=== PATIENT | male | born 1975 | race Caucasian/White ===

== ENCOUNTER 2017-05-11 22:37 | Emergency (ER) | payer MEDICAID ==
[~2017-05-11] VITALS: Ht 182.8 cm; Wt 121.6 kg
[~2017-05-11 22:37] MED LIST: DOXEPIN PO; [UNRECOGNIZED DRUG - OTHER] PO
[2017-05-11] MEDS ORDERED: KETOROLAC10 MG PO (23:47)
[2017-05-11] MEDS ORDERED: CYCLOBENZAPRINE5 M3 PO (23:47)
[2017-05-11] MEDS ORDERED: PREDNISONE20 M1 PO (23:47)
== END 2017-05-12 00:24 | disposition home or self-care (01) ==
LOC: ED 22:37
DX: S39.012A Strain of muscle, fascia and tendon of lower back, initial encounter (principal); F17.200 Nicotine dependence, unspecified, uncomplicated; X50.1XXA Overexertion from prolonged static or awkward postures, initial encounter; Y93.89 Activity, other specified; Y92.89 Other specified places as the place of occurrence of the external cause; Y99.9 Unspecified external cause status

== ENCOUNTER 2017-12-23 18:07 | Emergency (ER) | payer OTHER ==
[~2017-12-23] VITALS: Ht 182.8 cm; Wt 111.1 kg
[~2017-12-23 18:07] MED LIST changes: +CYCLOBENZAPRINE5 M3 PO; +KETOROLAC10 MG PO; +PREDNISONE20 M1 PO
[2017-12-23] MEDS ORDERED: DELTASONE20 M1 PO (18:28)
[2017-12-23] MEDS ORDERED: CYCLOBENZAPRINE5 M3 PO (18:28)
== END 2017-12-23 18:38 | disposition home or self-care (01) ==
LOC: ED 18:07
DX: G89.29 Other chronic pain (principal); M54.2 Cervicalgia; M54.5 Low back pain; Z88.6 Allergy status to analgesic agent

== ENCOUNTER 2018-02-04 06:38 | Emergency (ER) | payer OTHER ==
[~2018-02-04] VITALS: Ht 182.8 cm; Wt 108.9 kg
--- NOTE | ~2018-02-04 | EKG ---
[place], [place] ELECTROCARDIOGRAM REPORT NAME: TERA STEWART UNIT #: [id number] ROOM: DOCTOR: EPIPHANY DRAFT REPORT BIRTHDATE: [birth year] [facility] Test Date: 2018-02-04 Test Time: 07:28:53 Pat Name: TERA STEWART Department: Room: Gender: Head [employer] Baggage: KHOI : 1975 Requested By: TRAN BUI Order Number: [id number] Reading MD: Miri Vincent MD Measurements Intervals [place] Rate: 102 P: 54 RI: 125 QRS: 4 QRSD: 83 T: 49 QT: 321 QTc: 419 Interpretive Statements Sinus tachycardia Baseline wander in lead(s) V6 No previous ECG available for comparison Electronically Signed On 02-08-2018 12:01:49 PDT by Miri Vincent MD CM:EKGRPT:ELECTROCARDIOGRAM REPORT [id number] 1201 TRAN [place]INGO DRAFT REPORT TRAN BUI MD
[~2018-02-04 06:38] MED LIST changes: +DELTASONE20 M1 PO
[2018-02-04 07:50] LABS: BASO % 0.2 % (0.0-1.0); HEMATOCRIT 42.9 % (42.0-52.0); LYMPH # 0.4 10*3/uL (1.3-4.4); LYMPH % 7.7 % (27.0-41.0); MEAN CELL VOLUME 81.6 fl (80.0-94.0); MEAN CORPUSCULAR HGB 28.5 pg (27.0-31.0); MEAN PLATELET VOLUME 9.6 fl (9.6-12.3); MONO # 0.2 10*3/uL (0.1-1.0); MONO % 4.1 % (3.0-9.0); NEUT # 4.6 10*3/uL (2.3-7.9); NEUT % 86.9 % (47.0-73.0); PLATELET COUNT AUTOMATED 140 10*3/uL (130-400); RED BLOOD COUNT 5.26 10*6/uL (4.50-5.90); RED CELL DISTRI WIDTH 12.2 % (0-14.5); WHITE BLOOD COUNT 5.3 10*3/uL (4.8-10.8)
[2018-02-04 08:02] LABS: ACT PARTIAL THROMBO TIME 27.5 SECONDS (20.8-31.5); INTERNATIONAL NORM RATIO 1.2 (2.0-3.5)
[2018-02-04 08:06] LABS: ALBUMIN 3.3 gm/dl (3.1-4.5); ALKALINE PHOSPHATASE 101 U/L (45-117); BUN 15 mg/dl (7-24); CHLORIDE 101 mmol/L (98-107); CREATININE 0.79 mg/dL (0.70-1.30); POTASSIUM 3.9 mmol/L (3.5-5.1); SGOT/AST 59 IU/L (3-35); SGPT/ALT 55 U/L (12-78); SODIUM 134 mmol/L (136-145)
[2018-02-04 08:07] LABS: TROPONIN I < 0.015 ng/ml (<0.045)
[2018-02-04 09:34] LABS: BILIRUBIN 1+ (NEGATIVE); BLOOD NEGATIVE (NEGATIVE); CLARITY SL CLOUDY (CLEAR); COLOR YELLOW (YELLOW); GLUCOSE 1+ (NEGATIVE); KETONE 1+ (NEGATIVE); LEUKO ESTERASE NEGATIVE (NEGATIVE); NITRITE NEGATIVE (NEGATIVE); PH 5.5 (5.0-9.0); SPECIFIC GRAVITY 1.025 (1.005-1.030)
[2018-02-04 09:45] LABS: BACTERIA 2+
== END 2018-02-04 13:05 | disposition home or self-care (01) ==
LOC: ED 06:38
PROVIDERS: Emergency Medicine
DX: R53.83 Other fatigue (principal); B34.9 Viral infection, unspecified; M54.9 Dorsalgia, unspecified; G43.909 Migraine, unspecified, not intractable, without status migrainosus; G89.29 Other chronic pain; Z88.8 Allergy status to other drugs, medicaments and biological substances; Z88.6 Allergy status to analgesic agent; Z79.899 Other long term (current) drug therapy

== ENCOUNTER 2019-02-01 03:00 | Emergency (ER) | payer SELFPAY ==
[~2019-02-01] VITALS: Ht 182.8 cm; Wt 112.0 kg
[2019-02-01 04:01] LABS: BASO # 0.1 10*3/uL (0.0-0.1); BASO % 0.3 % (0.0-1.0); EOS # 0.1 10*3/uL (0.0-0.4); EOS % 0.5 % (1.0-4.0); HEMATOCRIT 39.7 % (42.0-52.0); HEMOGLOBIN 13.7 g/dl (14.0-18.0); LYMPH # 1.5 10*3/uL (1.3-4.4); LYMPH % 8.2 % (27.0-41.0); MEAN CELL VOLUME 84.6 fl (80.0-94.0); MEAN CORPUSCULAR HGB 29.2 pg (27.0-31.0); MEAN CORPUSCULAR HGB CONC 34.5 g/dl (33.0-37.0); MEAN PLATELET VOLUME 9.5 fl (9.6-12.3); MONO # 1.3 10*3/uL (0.1-1.0); MONO % 7.1 % (3.0-9.0); NEUT # 15.7 10*3/uL (2.3-7.9); NEUT % 83.4 % (47.0-73.0); PLATELET COUNT AUTOMATED 247 10*3/uL (130-400); RED BLOOD COUNT 4.69 10*6/uL (4.50-5.90); RED CELL DISTRI WIDTH 12.2 % (0-14.5); WHITE BLOOD COUNT 18.8 10*3/uL (4.8-10.8)
[2019-02-01 04:17] LABS: ALBUMIN 3.7 gm/dl (3.1-4.5); ALKALINE PHOSPHATASE 92 U/L (45-117); BUN 23 mg/dl (7-24); CHLORIDE 101 mmol/L (98-107); CREATININE 0.92 mg/dL (0.70-1.30); POTASSIUM 4.2 mmol/L (3.5-5.1); SGOT/AST 44 IU/L (3-35); SGPT/ALT 42 U/L (12-78); SODIUM 137 mmol/L (136-145); TOTAL PROTEIN 7.1 gm/dL (6.4-8.2)
[2019-02-01 04:18] LABS: ACETAMINOPHEN (TYLENOL) < 5.0 ug/ml (10-30); ETHYL ALCOHOL < 3.0 mg/dl (<3); TROPONIN I < 0.015 ng/ml (<0.045)
[2019-02-01 06:35] LABS: BILIRUBIN NEGATIVE (NEGATIVE); BLOOD NEGATIVE (NEGATIVE); CLARITY SL CLOUDY (CLEAR); COLOR YELLOW (YELLOW); GLUCOSE 3+ (NEGATIVE); KETONE NEGATIVE (NEGATIVE); LEUKO ESTERASE NEGATIVE (NEGATIVE); NITRITE NEGATIVE (NEGATIVE); PH 5.5 (5.0-9.0); UROBILINOGEN 0.2 E.U./dl (0.2-1.0)
[2019-02-01 06:44] LABS: BACTERIA TRACE; FINE GRANULAR CAST 31-40; URINE AMPHETAMINES < 1000 (1000ng/ml); URINE BARBITURATES < 200 (200ng/ml); URINE BENZODIAZEPINES > 200 (200ng/ml); URINE CANNABINOIDS (THC) < 50 (50ng/ml); URINE COCAINE < 300 (300ng/ml); URINE METHADONE < 300 (300ng/ml); URINE OPIATES < 300 (300ng/ml)
[2019-02-01 06:49] LABS: URINE PHENCYCLIDINE < 25 (25ng/ml)
== END 2019-02-01 06:55 | disposition home or self-care (01) ==
LOC: ED 03:00
PROVIDERS: Emergency Medicine Emergency Medical Services
DX: T40.2X1A Poisoning by other opioids, accidental (unintentional), initial encounter (principal); R11.10 Vomiting, unspecified; E11.9 Type 2 diabetes mellitus without complications; G89.29 Other chronic pain; Z79.899 Other long term (current) drug therapy; Z88.6 Allergy status to analgesic agent; Y92.89 Other specified places as the place of occurrence of the external cause

== ENCOUNTER 2019-12-13 19:21 | Emergency (ER) | payer OTHER | END 2019-12-13 20:30 | disposition home or self-care (01) | LOC: ED 19:21 | DX: M77.8 Other enthesopathies, not elsewhere classified (principal); M25.512 Pain in left shoulder; E11.9 Type 2 diabetes mellitus without complications; Z88.6 Allergy status to analgesic agent ==

== ENCOUNTER 2020-07-10 22:59 | Emergency (ER) | payer OTHER ==
[~2020-07-10] VITALS: Ht 177.8 cm; Wt 90.7 kg
== END 2020-07-10 23:40 | disposition home or self-care (01) ==
LOC: ED 22:59
DX: M54.9 Dorsalgia, unspecified (principal); G89.29 Other chronic pain; Z79.899 Other long term (current) drug therapy

== ENCOUNTER 2020-08-04 12:45 | Inpatient (IN) | payer OTHER ==
[~2020-08-04] VITALS: Ht 182.8 cm; Wt 110.0 kg
[2020-08-04 13:15] LABS: BASO # 0.1 10*3/uL (0.0-0.1); BASO % 0.5 % (0.0-1.0); EOS # 0.2 10*3/uL (0.0-0.4); HEMATOCRIT 43.1 % (42.0-52.0); LYMPH # 2.2 10*3/uL (1.3-4.4); LYMPH % 21.2 % (27.0-41.0); MEAN CELL VOLUME 84.2 fl (80.0-94.0); MEAN CORPUSCULAR HGB 28.3 pg (27.0-31.0); MEAN CORPUSCULAR HGB CONC 33.6 g/dl (33.0-37.0); MEAN PLATELET VOLUME 9.4 fl (9.6-12.3); MONO # 0.7 10*3/uL (0.1-1.0); MONO % 7.2 % (3.0-9.0); NEUT # 7.1 10*3/uL (2.3-7.9); NEUT % 68.8 % (47.0-73.0); PLATELET COUNT AUTOMATED 325 10*3/uL (130-400); RED BLOOD COUNT 5.12 10*6/uL (4.50-5.90); RED CELL DISTRI WIDTH 12.5 % (0-14.5); WHITE BLOOD COUNT 10.3 10*3/uL (4.8-10.8)
[2020-08-04 13:22] VITALS: BP 116/70
[2020-08-04 13:29] LABS: ALBUMIN 3.5 gm/dl (3.1-4.5); ALKALINE PHOSPHATASE 131 U/L (45-117); BUN 18 mg/dl (7-24); CHLORIDE 103 mmol/L (98-107); CREATININE 0.95 mg/dL (0.70-1.30); POTASSIUM 4.4 mmol/L (3.5-5.1); SGOT/AST 22 IU/L (3-35); SGPT/ALT 39 U/L (12-78); SODIUM 137 mmol/L (136-145); TOTAL PROTEIN 7.5 gm/dL (6.4-8.2)
[2020-08-04 13:32] LABS: ETHYL ALCOHOL < 3.0 mg/dl (<3)
[2020-08-04 14:03] LABS: BILIRUBIN Negative (Negative); BLOOD Negative (Negative); CLARITY Clear (Clear); COLOR Yellow (Yellow); GLUCOSE 3+ (Negative); KETONE Negative (Negative); LEUKO ESTERASE Negative (Negative); NITRITE Negative (Negative); SPECIFIC GRAVITY >= 1.030 (1.001-1.030); UROBILINOGEN 0.2 E.U./dl (0.0-1.0)
[2020-08-04 14:13] LABS: URINE AMPHETAMINES < 1000 (1000ng/ml); URINE BARBITURATES < 200 (200ng/ml); URINE BENZODIAZEPINES < 200 (200ng/ml); URINE CANNABINOIDS (THC) < 50 (50ng/ml); URINE COCAINE > 300 (300ng/ml); URINE METHADONE < 300 (300ng/ml); URINE OPIATES > 300 (300ng/ml)
[2020-08-04 14:15] LABS: EPITHELIAL CELLS 0-2; WBC 0-2 wbc/hpf (0-5)
[2020-08-04 14:27] LABS: URINE PHENCYCLIDINE < 25 (25ng/ml)
[2020-08-04 16:00] VITALS: BP 120/73
[2020-08-04 20:00] VITALS: BP 120/62
[2020-08-05] VITALS: BP 132/81
[2020-08-05 08:00] VITALS: BP 101/60
[2020-08-05] MEDS ORDERED: SILDENAFIL20 M1 PO (10:04)
[2020-08-05] MEDS ORDERED: AMARYL4 MG PO (10:04)
[2020-08-05] MEDS ORDERED: METFORMIN HCL500 M2 PO (10:05)
[2020-08-05] MEDS ORDERED: LIPITOR40 MG PO (10:05)
[2020-08-05] MEDS ORDERED: NEURONTIN600 MG PO (10:06)
[2020-08-05] MEDS ORDERED: HYDROCODONE-AC1 EAC1 PO (10:07)
[2020-08-05] MEDS ORDERED: TRULICITY0.75 MG/0. SC (10:08)
[2020-08-05] MEDS ORDERED: SERTRALINE HYDR50 MG PO (10:09)
[2020-08-05 16:00] VITALS: BP 113/68
[2020-08-05 20:00] VITALS: BP 146/75
[2020-08-06] VITALS: BP 141/69
[2020-08-06 08:00] VITALS: BP 124/87
[2020-08-06 16:00] VITALS: BP 143/77
[2020-08-07] VITALS: BP 105/70
[2020-08-07 05:45] LABS: BUN 13 mg/dl (7-24); CHLORIDE 99 mmol/L (98-107); CREATININE 0.76 mg/dL (0.70-1.30); POTASSIUM 4.5 mmol/L (3.5-5.1); SODIUM 136 mmol/L (136-145)
[2020-08-07 06:09] LABS: BASO # 0.1 10*3/uL (0.0-0.1); BASO % 0.4 % (0.0-1.0); EOS # 0.5 10*3/uL (0.0-0.4); EOS % 4.6 % (1.0-4.0); HEMATOCRIT 39.5 % (42.0-52.0); LYMPH % 26.7 % (27.0-41.0); MEAN CELL VOLUME 86.1 fl (80.0-94.0); MEAN CORPUSCULAR HGB 28.8 pg (27.0-31.0); MEAN CORPUSCULAR HGB CONC 33.4 g/dl (33.0-37.0); MEAN PLATELET VOLUME 9.8 fl (9.6-12.3); MONO # 1.2 10*3/uL (0.1-1.0); MONO % 10.8 % (3.0-9.0); NEUT # 6.4 10*3/uL (2.3-7.9); NEUT % 56.5 % (47.0-73.0); PLATELET COUNT AUTOMATED 266 10*3/uL (130-400); RED BLOOD COUNT 4.59 10*6/uL (4.50-5.90); RED CELL DISTRI WIDTH 12.2 % (0-14.5); WHITE BLOOD COUNT 11.4 10*3/uL (4.8-10.8)
[2020-08-07 08:00] VITALS: BP 126/80
[2020-08-07 16:00] VITALS: BP 120/84
[2020-08-08] VITALS: BP 137/69
[2020-08-08 08:00] VITALS: BP 127/79
[2020-08-08 16:00] VITALS: BP 116/69
[2020-08-09] VITALS: BP 111/45
[2020-08-09 06:35] LABS: BASO % 0.5 % (0.0-1.0); EOS # 0.4 10*3/uL (0.0-0.4); EOS % 4.8 % (1.0-4.0); HEMATOCRIT 37.7 % (42.0-52.0); LYMPH # 2.6 10*3/uL (1.3-4.4); LYMPH % 31.9 % (27.0-41.0); MEAN CELL VOLUME 84.7 fl (80.0-94.0); MEAN CORPUSCULAR HGB 28.1 pg (27.0-31.0); MEAN CORPUSCULAR HGB CONC 33.2 g/dl (33.0-37.0); MEAN PLATELET VOLUME 9.6 fl (9.6-12.3); MONO % 12.1 % (3.0-9.0); NEUT % 49.8 % (47.0-73.0); PLATELET COUNT AUTOMATED 234 10*3/uL (130-400); RED BLOOD COUNT 4.45 10*6/uL (4.50-5.90); RED CELL DISTRI WIDTH 12.2 % (0-14.5); WHITE BLOOD COUNT 8.1 10*3/uL (4.8-10.8)
[2020-08-09 06:49] LABS: ALBUMIN 2.8 gm/dl (3.1-4.5); ALKALINE PHOSPHATASE 89 U/L (45-117); BUN 11 mg/dl (7-24); CHLORIDE 105 mmol/L (98-107); CREATININE 0.58 mg/dL (0.70-1.30); POTASSIUM 4.1 mmol/L (3.5-5.1); SGOT/AST 8 IU/L (3-35); SGPT/ALT 24 U/L (12-78); SODIUM 138 mmol/L (136-145); TOTAL PROTEIN 6.3 gm/dL (6.4-8.2)
[2020-08-09 08:00] VITALS: BP 105/64
[2020-08-09] MEDS ORDERED: METHOCARBAMOL750 M1 PO (09:43)
[2020-08-09] MEDS ORDERED: DICYCLOMINE HCL20 MG PO (09:43)
[2020-08-09] MEDS ORDERED: ZOFRAN4 MG PO ×2 (09:44)
[2020-08-09] MEDS ORDERED: ZOFRAN 4 MG ED2 TAB PO (09:45)
== END 2020-08-09 13:05 | disposition home or self-care (01) | DRG 897 ==
LOC: 4E 12:45
PROVIDERS: Student in an Organized Health Care Education/Training Program; ADMIT Internal Medicine; ATTEND Internal Medicine
DX: F11.23 Opioid dependence with withdrawal (principal); F33.0 Major depressive disorder, recurrent, mild; N52.9 Male erectile dysfunction, unspecified; F14.10 Cocaine abuse, uncomplicated; G62.9 Polyneuropathy, unspecified; G89.29 Other chronic pain; F41.9 Anxiety disorder, unspecified; D72.810 Lymphocytopenia; E11.65 Type 2 diabetes mellitus with hyperglycemia; E11.42 Type 2 diabetes mellitus with diabetic polyneuropathy; E78.49 Other hyperlipidemia; Z79.899 Other long term (current) drug therapy

== ENCOUNTER 2020-12-29 20:54 | Emergency (ER) | payer OTHER ==
[~2020-12-29 20:54] MED LIST changes: +AMARYL4 MG PO; +DICYCLOMINE HCL20 MG PO; +HYDROCODONE-AC1 EAC1 PO; +LIPITOR40 MG PO; +METFORMIN HCL500 M2 PO; +METHOCARBAMOL750 M1 PO; +NEURONTIN600 MG PO; +SERTRALINE HYDR50 MG PO; +SILDENAFIL20 M1 PO; +TRULICITY0.75 MG/0. SC; +ZOFRAN 4 MG ED2 TAB PO; +ZOFRAN4 MG PO
== END 2020-12-29 22:22 | disposition left against medical advice (07) ==
LOC: ED 20:54
DX: M79.603 Pain in arm, unspecified (principal); Z53.21 Procedure and treatment not carried out due to patient leaving prior to being seen by health care provider; W19.XXXA Unspecified fall, initial encounter; Y93.89 Activity, other specified; Y92.89 Other specified places as the place of occurrence of the external cause; Y99.8 Other external cause status